=== PATIENT | male | born 1990 | race Caucasian/White ===

== ENCOUNTER 2020-05-20 09:53 | Emergency (ER) | payer OTHER ==
[2020-05-20 12:30] LABS: BASOPHILS % (AUTO) 0.3 %; EOSINOPHILS # (AUTO) 0.1 10^3/uL (0.0-0.7); EOSINOPHILS % (AUTO) 1.5 %; HGB - HEMOGLOBIN 15.1 g/dL (14.0-18.0); LYMPHOCYTES # (AUTO) 1.8 10^3/uL (1.5-3.5); LYMPHOCYTES % (AUTO) 30.3 %; MEAN CORPUSCULAR HEMOGLOBIN 31.2 pg (27.0-31.0); MEAN CORPUSCULAR HGB CONC 34.4 g/dL (32.0-36.0); MEAN CORPUSCULAR VOLUME 90.7 fL (80.0-94.0); MEAN PLATELET VOLUME 10.2 fL (7.4-11.4); MONOCYTES # (AUTO) 0.6 10^3/uL (0.0-1.0); MONOCYTES % (AUTO) 9.6 %; NEUTROPHILS # (AUTO) 3.5 10^3/uL (1.5-6.6); PLT - PLATELET COUNT 206 10^3/uL (130-450); RED BLOOD COUNT 4.84 10^6/uL (4.70-6.10)
--- NOTE | 2020-05-20 12:37 | XRAY Report ---
PROCEDURE: Chest 2 View X-Ray INDICATIONS: Left-sided chest pain, shortness of breath TECHNIQUE: 2 view(s) of the chest. COMPARISON: None. FINDINGS: Surgical changes and devices: None. Lungs and pleura: No pleural effusions or pneumothorax. Lungs are clear. Mediastinum: Mediastinal contours are normal. Heart size is normal. Bones and chest wall: No suspicious bony abnormalities. Soft tissues appear unremarkable. IMPRESSION: No acute cardiac pulmonary process demonstrated radiographically. Reviewed by: Tom Abbott MD on 05/20/2020 12:35 PM PDT Approved by: Tom Abbott MD on 05/20/2020 12:35 PM PDT Station ID: [id number]
[2020-05-20 12:40] LABS: ALBUMIN 4.1 g/dL (3.2-5.5); ALBUMIN/GLOBULIN RATIO 1.1 (1.0-2.2); BILIRUBIN,TOTAL 1.1 mg/dL (0.2-1.0); CALCIUM 8.8 mg/dL (8.5-10.3); CREATININE 0.8 mg/dL (0.6-1.2); TOTAL PROTEIN 7.7 g/dL (6.7-8.2)
--- NOTE | 2020-05-20 13:04 | ED Physician Documentation ---
PD HPI CHEST PAIN - Stated complaint Stated Complaint: SOA/L SIDE PX - Chief complaint Chief Complaint: Back Pain - History obtained from History obtained from: Patient - History of Present Illness Timing - onset: How many days ago (12) Timing - onset during: Light activity Timing - duration: Days (12) Timing - details: Gradual onset, Still present, Still present in ED Quality: Aching, Sharp Location: Other (left flank) Radiation: Back Improved by: Rest Worsened by: Exertion, Inspiration, Movement, Palpation, Position Associated symptoms: No: Shortness of air, Diaphoresis, Nausea, Vomiting, Feeling faint / dizzy, General Weakness, Palpitations, Cough Similar symptoms before: Has not had sx before Recently seen: Not recently seen - Additional information Additional information: Previously well 30-year-old male has developed some pain in his left flank. He states this is worse when he moves around and if he takes a deep breath. He took some Tylenol this morning it made absolutely no difference. He states that he has had this pain now for about 12 days he feels that it is slowly worsening and he expected it to get better. He thought initially this was a musculoskeletal injury he is very uncertain now what is wrong. Review of Systems Constitutional: denies: Fever Eyes: denies: Decreased vision Ears: denies: Ear pain Nose: denies: Rhinorrhea / runny nose, Congestion Throat: denies: Sore throat Cardiac: denies: Chest pain / pressure, Palpitations, Pedal edema, Calf pain Respiratory: denies: Dyspnea, Cough, Wheezing GI: reports: Abdominal Pain. denies: Nausea, Vomiting, Diarrhea : denies: Dysuria, Frequency Skin: denies: Rash Musculoskeletal: reports: Back pain. denies: Neck pain, Extremity pain, Extremity swelling Neurologic: denies: Generalized weakness, Focal weakness, Numbness PD PAST MEDICAL HISTORY - Past Medical History Past Medical History: No - Past Surgical History Past Surgical History: No - Present Medications Home Medications: Ambulatory Orders Medication Instructions Recorded Confirmed Fexofenadine HCl [Lara Allergy] 180 mg PO DAILY 05/20/20 05/20/20 - Allergies Allergies/Adverse Reactions: Allergies Allergy/AdvReac Type Severity Reaction Status Date / Time No Known Drug Allergies Allergy Verified 05/20/20 10:28 - Social History Does the pt smoke?: No Smoking Status: Never smoker Does the pt drink ETOH?: Yes Does the pt have substance abuse?: No - Immunizations Immunizations are current?: Yes PD ED PE NORMAL - Vitals Vital signs reviewed: Yes (Normal) - General General: Alert and oriented X 3, No acute distress, Well developed/nourished - HEENT HEENT: Atraumatic, PERRL, EOMI - Neck Neck: Supple, no meningeal sign, No bony TTP - Cardiac Cardiac: RRR, No murmur - Respiratory Respiratory: No respiratory distress, Clear bilaterally, Other (Mild tenderness to the muscles of the left flank and back and not specifically to the left kidney.) - Abdomen Abdomen: Normal bowel sounds, Soft, Non tender, Non distended, No organomegaly - Back Back: No CVA TTP, No spinal TTP, Other (Paraspinous muscle tenderness to the left.) - Derm Derm: Normal color, Warm and dry, No rash - Extremities Extremities: No deformity, No edema - Neuro Neuro: Alert and oriented X 3, laboratory inspector 2-12 intact, No motor deficit, No sensory deficit, Normal speech Eye Opening: Spontaneous Motor: Obeys Commands Verbal: Oriented GCS Score: 15 - Psych Psych: Normal mood, Normal affect Results - Vitals Vitals: Vital Signs - 24 hr 05/20/20 05/20/20 05/20/20 10:28 11:48 13:00 Temperature 36.4 C L 36.8 C Heart Rate 68 83 76 Respiratory 16 18 19 Rate Blood Pressure 128/73 135/86 H O2 Saturation 98 98 95 05/20/20 14:40 Temperature Heart Rate 77 Respiratory 16 Rate Blood Pressure 121/82 H O2 Saturation 97 Oxygen O2 Source Room air - EKG (time done) 1237 Rate: Rate (enter#) (73) Rhythm: NSR Ischemia: Normal ST segments Compare to prior EKG: Old EKG unavailable Computer interpretation: Agree with computer - Labs Labs: Laboratory Tests 05/20/20 05/20/20 05/20/20 10:50 12:17 12:17 WBC 6.0 RBC 4.84 Hgb 15.1 Hct 43.9 MCV 90.7 MCH 31.2 H MCHC 34.4 RDW 13.0 Plt Count 206 MPV 10.2 Neut # (Auto) 3.5 Lymph # (Auto) 1.8 [place] # (Auto) 0.6 Eos # (Auto) 0.1 Baso # (Auto) 0.0 Absolute Nucleated RBC 0.00 Nucleated RBC % 0.0 D-Dimer Sodium 138 Potassium 4.1 Chloride 105 Carbon Dioxide 23 Anion Gap 10.0 BUN 17 Creatinine 0.8 Estimated GFR (MDRD) 114 Glucose 99 Calcium 8.8 Total Bilirubin 1.1 H AST 15 ALT 18 Alkaline Phosphatase 63 Troponin I High Sens Total Protein 7.7 Albumin 4.1 Globulin 3.6 Albumin/Globulin Ratio 1.1 Lipase 36 Urine Color YELLOW Urine Clarity CLEAR Urine pH 6.5 Ur Specific [place] 1.020 Urine Protein NEGATIVE Urine Glucose (UA) NEGATIVE Urine Ketones NEGATIVE Urine Occult Blood NEGATIVE Urine Nitrite NEGATIVE Urine Bilirubin NEGATIVE Urine Urobilinogen 1 (NORMAL) Ur Leukocyte Esterase NEGATIVE Ur Microscopic Review NOT INDICATED Urine Culture Comments NOT INDICATED 05/20/20 05/20/20 12:17 12:17 WBC RBC Hgb Hct MCV MCH MCHC RDW Plt Count MPV Neut # (Auto) Lymph # (Auto) [place] # (Auto) Eos # (Auto) Baso # (Auto) Absolute Nucleated RBC Nucleated RBC % D-Dimer 212.0 Sodium Potassium Chloride Carbon Dioxide Anion Gap BUN Creatinine Estimated GFR (MDRD) Glucose Calcium Total Bilirubin AST ALT Alkaline Phosphatase Troponin I High Sens < 2.3 L Total Protein Albumin Globulin Albumin/Globulin Ratio Lipase Urine Color Urine Clarity Urine pH Ur Specific [place] Urine Protein Urine Glucose (UA) Urine Ketones Urine Occult Blood Urine Nitrite Urine Bilirubin Urine Urobilinogen Ur Leukocyte Esterase Ur Microscopic Review Urine Culture Comments - Rads (name of study) chest 2 view Radiology: Prelim report reviewed (Impression no acute cardiopulmonary process demonstrated radiographically.), EMP read indepedently, See rad report Procedures - Bedside sono Bedside sono by EMP: With his bedside ultrasound the left kidney is imaged it is sonographically nontender there is no evidence of hydronephrosis. PD MEDICAL DECISION MAKING - ED course Complexity details: reviewed results, re-evaluated patient, considered differential, d/w patient ED course: 30-year-old male with left-sided flank pain appears to have a musculoskeletal type of injury. We did entertain the possibility of pneumonia pneumothorax rib fracture ureterolithiasis pyelonephritis and did not find evidence of any of these. The patient is administered dexamethasone 10 mg intravenously and Toradol 30 mg intravenously. We have diagnosed him with a musculoskeletal pain by process of elimination Departure - Departure Disposition: 01 Home, Self Care Clinical Impression: Acute flank pain Instructions: ED Low Back Pain Injury Follow-Up: [facility] Nevarez [Provider Group] Comments: Today it appears the pain you are having in your flank is related to a musculoskeletal type injury. This may be overuse a single strain or chronic overuse with the use of a mask. Ibuprofen should help with the pain. We have g iven you a dose of dexamethasone today as well as Toradol. This should help with your pain today
[2020-05-20 13:10] LABS: BILIRUBIN,URINE NEGATIVE (NEGATIVE); GLUCOSE, URINE (UA) NEGATIVE (NEGATIVE); KETONES,URINE (UA) NEGATIVE (NEGATIVE); LEUKOCYTE ESTERASE, URINE NEGATIVE (NEGATIVE); NITRITE,URINE NEGATIVE (NEGATIVE); OCCULT BLOOD,URINE NEGATIVE (NEGATIVE); PH,URINE 6.5 PH (5.0-7.5); PROTEIN,URINE NEGATIVE (NEGATIVE); UROBILINOGEN,URINE 1 (NORMAL) E.U./dL (NORMAL)
[2020-05-20 13:11] LABS: CLARITY,URINE CLEAR (CLEAR)
[2020-05-20] MEDS ORDERED: KETOROLAC 30 MG/ML VIAL IVP STA (15:23)
[2020-05-20] MEDS ORDERED: DEXAMETHASONE 10 MG/ML VIAL IVP STA (15:23)
[2020-05-20 15:35] VITALS: BP 128/84
== END 2020-05-20 15:36 | disposition home or self-care (01) ==
LOC: ED 09:53
DX: M79.18 Myalgia, other site (principal); R10.9 Unspecified abdominal pain; M54.9 Dorsalgia, unspecified
CPT/HCPCS: 36415; 71046; 80053; 81001; 81003; 83690; 84484; 85025; 85379; 87086; 93005; 96374; 99284